=== PATIENT | female | born 1995 ===

== ENCOUNTER 2025-05-01 06:25 | Day surgery (SDC) | payer OTHER, SELFPAY | END 2025-05-01 13:42 | disposition home or self-care (01) | LOC: GI 06:25 | PROVIDERS: ATTENDING PHYSICIAN Internal Medicine Gastroenterology; FAMILY PHYSICIAN Family Medicine | DX: Z12.11 Encounter for screening for malignant neoplasm of colon (principal); R12 Heartburn; K62.1 Rectal polyp; K29.50 Unspecified chronic gastritis without bleeding; Z80.0 Family history of malignant neoplasm of digestive organs | CPT/HCPCS: 45380; 43239; 88305; 88342 ==